=== PATIENT | male | born 1950 | race Caucasian/White ===

== ENCOUNTER 2024-09-15 19:07 | Inpatient (IN) | payer OTHER, MEDICARE ==
[~2024-09-15] VITALS: Ht 172.7 cm; Wt 133.9 kg
[~2024-09-15 19:07] MED LIST: Enoxaparin 40 MG/0.4 ML SYR SC SCH
[2024-09-15] MEDS ORDERED: NS 1,000 ML IV SCH ×2 (20:20→23:20)
[2024-09-15] MEDS ORDERED: DOXA2 PO (20:29)
[2024-09-15] MEDS ORDERED: POTA10T PO (20:29)
[2024-09-15] MEDS ORDERED: CLOP75 PO (20:29)
[2024-09-15] MEDS ORDERED: AMLODIPINE BESY10 MG PO (20:30)
[2024-09-15] MEDS ORDERED: ATOR80 PO (20:30)
[2024-09-15] MEDS ORDERED: FURO20 PO (20:31)
[2024-09-15 20:40] LABS: BASOPHILS ABSOLUTE AUTO 0.02 K/mm3 (0.00-0.23); BASOPHILS PERCENT AUTO 0 % (0-2); EOSINOPHILS ABSOLUTE AUTO 0.01 K/mm3 (0.00-0.68); EOSINOPHILS PERCENT AUTO 0 % (0-6); Hematocrit 38.7 % (37.0-53.0); Hemoglobin 13.2 g/dL (13.5-17.5); IMMATURE GRAN ABSOLUTE AUTO 0.02 K/mm3 (0.00-0.10); IMMATURE GRAN PERCENT AUTO 0 % (0-1); LYMPHOCYTES ABSOLUTE AUTO 1.15 K/mm3 (0.84-5.20); LYMPHOCYTES PERCENT AUTO 18 % (21-46); MONOCYTES ABSOLUTE AUTO 1.01 K/mm3 (0.16-1.47); MONOCYTES PERCENT AUTO 16 % (4-13); Mean Corpuscular HGB 32.1 pg (26.0-34.0); Mean Corpuscular HGB Conc 34.1 g/dL (31.5-36.5); Mean Corpuscular Volume 94 fL (80-100); Mean Platelet Volume 9.3 fL (9.1-12.4); NEUTROPHILS PERCENT AUTO 66 % (41-73); Platelet Count 192 K/mm3 (150-400); RDW Coefficient Variation 12.9 % (11.7-14.2); RDW Standard Deviation 44.9 fL (35.1-46.3); Red Blood Cell Count 4.11 M/mm3 (4.30-5.90); White Blood Cell Count 6.41 K/mm3 (4.00-11.30)
[2024-09-15 21:03] LABS: Bun/Creatinine Ratio 17.3 (12.0-20.0); Calcium, Blood 8.9 mg/dL (8.5-10.1); Creatinine, Blood 1.1 mg/dL (0.60-1.20); Potassium, Blood 4.2 mmol/L (3.5-5.5)
[2024-09-15 21:16] LABS: Influenza B, PCR NEGATIVE (NEGATIVE); Resp Syncytial Virus, PCR NEGATIVE (NEGATIVE); SARS-Cov-2 (COVID-19) PCR, MMC NEGATIVE (NEGATIVE)
[2024-09-15 21:21] LABS: Free Thyroxine 0.96 ng/dL (0.70-1.60); Thyroid Stimulating Hormone 3.85 uIU/mL (0.360-4.800)
[2024-09-15 21:55] LABS: Influenza A, PCR POSITIVE (NEGATIVE)
[2024-09-15] MEDS ORDERED: Ipratropium/Albuterol SulF 2.5-0.5MG/3 ML Amp INH ONE (22:40)
[2024-09-15] MEDS ORDERED: Ondansetron HCl 2 MG / ML 2ML Vial IV PRN (23:25)
[2024-09-15] MEDS ORDERED: Guaifenesin/Dextromethorphan Syrup 5 ML UDC PO PRN (23:25)
[2024-09-15] MEDS ORDERED: Ipratropium/Albuterol SulF 2.5-0.5MG/3 ML Amp INH PRN (23:25)
[2024-09-15] MEDS ORDERED: FLU VACC TS2024-25(6MOS UP)/PF 45 MCG/0.5 ML SYRINGE IM ONE (23:25)
[2024-09-16] MEDS ORDERED: Oseltamivir Phosphate 75 MG Cap PO SCH
[2024-09-16] MEDS ORDERED: MethylPREDNISolone Sod Succ 125 MG Vial IV SCH
[2024-09-16 01:33] VITALS: BP 145/70
--- NOTE | 2024-09-16 04:24 | NUR ---
NEW ADMIT PT ARRIVED TO ROOM AT 0045. PT WAS SATURATED IN URINE/FECES. PT STATES INCONT AT BASELINE. PT A/OX3-4. POOR HISTORIAN. PT IS A AN HAVE MEDS FILLED WITH [facility]. PT STATES HE STOPPED TAKING MEDS BECAUSE HE RAN OUT AND WAITING FOR MEDS TO ARRIVE IN THE MAIL. PT IS UNABLE TO STATE WHICH MEDS HE IS OUT OF/STOPPED TAKING OR WHEN HE TOOK THEM LAST. PT IS ABLE TO ANSWER BASIC ORIENTATION QUESTIONS. PT ADMIT FOR FLU A. PT ON ROOM AIR. FULL CODE. PT IS HOMELESS AND CURRENTLY LIVING IN [place] CAR AT THE [place]. PT HAS CALLED EMS TWICE IN PAST WEEK DUE TO FALLING ON THE GROUND AND NOT BEING ABLE TO GET HIMSELF UP. PT STATES HE IS ALONE. PT DOES NOT WANT FAMILY/CHILDREN CONTACTED. HE STATES HE DOES NOT HAVE HIS CHILDREN'S PHONE NUMBERS AND DOES NOT THINK THEY WOULD "DO ANYTHING" SOILED CLOTHES REMOVED. PT PLACED ON PUREWICK DUE TO INCONT AND PT STATES HE IS UNABLE TO USE URINAL. PT ORIENTED TO ROOM AND CALL LIGHT. PT DENIES IGNITION SOURCES. PT ABLE TO MAKE NEEDS KNOWN AND CALLING APPROPRIATELY.
[2024-09-16 05:20] LABS: BASOPHILS ABSOLUTE AUTO 0.01 K/mm3 (0.00-0.23); BASOPHILS PERCENT AUTO 0 % (0-2); EOSINOPHILS PERCENT AUTO 0 % (0-6); Hematocrit 38.6 % (37.0-53.0); IMMATURE GRAN ABSOLUTE AUTO 0.01 K/mm3 (0.00-0.10); IMMATURE GRAN PERCENT AUTO 0 % (0-1); LYMPHOCYTES ABSOLUTE AUTO 0.84 K/mm3 (0.84-5.20); LYMPHOCYTES PERCENT AUTO 17 % (21-46); MONOCYTES ABSOLUTE AUTO 0.31 K/mm3 (0.16-1.47); MONOCYTES PERCENT AUTO 6 % (4-13); Mean Corpuscular HGB 32.1 pg (26.0-34.0); Mean Corpuscular HGB Conc 33.7 g/dL (31.5-36.5); Mean Corpuscular Volume 95 fL (80-100); Mean Platelet Volume 9.2 fL (9.1-12.4); NEUTROPHILS ABSOLUTE AUTO 3.71 K/mm3 (1.96-9.15); NEUTROPHILS PERCENT AUTO 76 % (41-73); Platelet Count 189 K/mm3 (150-400); RDW Coefficient Variation 12.9 % (11.7-14.2); RDW Standard Deviation 45.6 fL (35.1-46.3); Red Blood Cell Count 4.05 M/mm3 (4.30-5.90); White Blood Cell Count 4.88 K/mm3 (4.00-11.30)
[2024-09-16 06:28] LABS: Albumin, Blood 3.1 g/dL (3.4-5.0); Albumin/Globulin Ratio 0.9 (0.8-1.8); Bilirubin, Total 0.6 mg/dL (0.1-1.0); Bun/Creatinine Ratio 16.8 (12.0-20.0); Calcium, Blood 8.5 mg/dL (8.5-10.1); Creatinine, Blood 1.01 mg/dL (0.60-1.20); Globulin, Blood 3.4 g/dL (2.2-4.0); Total Protein, Blood 6.5 g/dL (6.4-8.2)
[2024-09-16 07:12] VITALS: BP 133/78
--- NOTE | 2024-09-16 09:00 | NUR ---
pt resting in bed, awake, a/ox3, a bit slow to respond, cooperative with care, follows commands well, denies pain, lungs are clear in upper marc dim in bases, resp even and unlabored, on r/a, denies cough, hrr, tele in place running sr in the 70's, no edema noted, ppp+1, cap refill<3 sec, vs stable, afebrile, piv to rfa site is clear and patent, btx4, abd flat soft nontender, voids via purwick at this time, skin has excoriated makenna area, maew, weak, sade, makes needs known, call light in reach.
[2024-09-16 10:56] VITALS: BP 142/69
--- NOTE | 2024-09-16 12:46 | NUR ---
pt resting in bed, no needs at this time, PT worked with him, had him stand and is able to bear weight, call light in reach.
[2024-09-16 15:37] VITALS: BP 142/83
--- NOTE | 2024-09-16 18:37 | NUR ---
PT PLEASANT THIS AFTERNOON, NO C/O PAIN FOR ME. DID GET UP TO BATHROOM TODAY. 1 ASST WITH FWW PER AIDE. NO COUGHING NOTED THIS AFTERNOON. CONTINUES ON R/A. PRESENTLY EATING DINNER. NO NEW CONCERNS NOTED. BED IN LOW POSITION, CALL LITE IN REACH, CALLS APROP
[2024-09-16 20:07] VITALS: BP 132/65
[2024-09-17] VITALS (7 sets, daily range): BP systolic 115–156; BP diastolic 67–90
--- NOTE | 2024-09-17 06:27 | NUR ---
SHIFT SUMMARY PT HAS BEEN RESTING COMFORTABLY IN BED OVERNIGHT. PT HAS BEEN AOX4, CALM AND COOPERATIVE. HE HAD NO COMPLAINTS DURING SHIFT, BUT AT START OF SHIFT, HE EXPRESSED DESIRE TO GO HOME. NO ACUTE EVENTS OVERNIGHT.
[2024-09-17] MEDS ORDERED: GuaiFENesin 600 MG TabCR PO SCH (21:00)
[2024-09-18 04:52] VITALS: BP 122/76
--- NOTE | 2024-09-18 06:34 | NUR ---
SHIFT SUMMARY PT HAS BEEN RESTING IN BED COMFORTABLY OVERNIGHT. PT HAS BEEN AOX4, CALM AND COOPERATIVE. PT HAS HAD NO COMPLAINTS. HE HAS GOTTEN UP ONCE TO GO TO BATHROOM W/ 1PA AND FWW. PT IS ON TELEMETRY. PT HAS BEEN ABLE TO MAKE HIS NEEDS KNOWN. NO ACUTE EVENTS OVERNIGHT.
[2024-09-18 08:48] VITALS: BP 148/79
[2024-09-18 08:48] LABS: MYOGLOBIN SERUM 113 ng/mL (<=72)
[2024-09-18] MEDS ORDERED: PredniSONE 20 MG Tab PO SCH (09:00)
[2024-09-18 15:27] VITALS: BP 150/86
--- NOTE | 2024-09-18 18:13 | NUR ---
PT HAD NO C/O PAIN DURING THE DAY. PT REQUESTED PRN MEDICATION FOR COUGHING. SEE EMAR FOR DETAILS. PT HAS NO OTHER QUESTIONS OR CONCERNS AT THIS TIME.
[2024-09-18 20:31] VITALS: BP 140/79
[2024-09-19 02:47] VITALS: BP 125/85
--- NOTE | 2024-09-19 05:31 | NUR ---
SHIFT SUMMARY PT HAS BEEN RESTING IN BED OVERNIGHT. HE HAS BEEN AOX4, CALM AND COOPERATIVE. PT HAS BEEN ABLE TO AMBULATE W/ 1PA AND FWW TO BATHROOM. PT HAD NO COMPLAINTS OVERNIGHT. NO ACUTE EVENTS OVERNIGHT.
[2024-09-19 07:23] VITALS: BP 134/80
[2024-09-19 15:54] VITALS: BP 125/81
--- NOTE | 2024-09-19 17:48 | NUR ---
NO CHANGES FOR THE PT TODAY, NO C/O PAIN SOB OR CHEST PAIN
[2024-09-19 20:17] VITALS: BP 143/71
--- NOTE | 2024-09-20 04:28 | NUR ---
SHIFT SUMMARY PT ALERT ORIENTED ABLE TO VERBALIZE NEEDS REQUIRES SBA TO GET UP. HE USES THE URINAL AT BEDSIDE BUT IS INCONTINENT AT TIMES. VSS ON RA SATTING AT 96%. REMAINS WITH A NONPRODUCTIVE COUGH MEDICATED WITH ROBITUSSIN WITH GOOD RELIEF. REMAINS IN DROPLET ISOLATION R/T INFLUENZA A. REMAINS ON TAMIFLU BID. HES DUE TO BE DISCHARGED TO A SNF. HE CURRENTLY LIVES IN HIS TRUCK HES RESTING IN BED AT THIS TIME WITH CALL LIGHT IN REACH
[2024-09-20 08:59] VITALS: BP 130/78
--- NOTE | 2024-09-20 16:44 | NUR ---
SUMMARY NO ACUTE EVENTS. PATIENT WAITING ON SNF PLACEMENT.
[2024-09-20 17:40] VITALS: BP 158/83
[2024-09-20 21:21] VITALS: BP 149/73
[2024-09-21 00:09] VITALS: BP 134/68
[2024-09-21 04:19] VITALS: BP 128/58
--- NOTE | 2024-09-21 05:05 | NUR ---
SHIFT SUMMARY NOC PT A/O X 4. PLEASANT AND COOPERATIVE WITH CARE. VSS. NO ACUTE EVENTS TO REPORT. PT ON DROPLET ISOLATION FOR INFLUENZA A. PT SLEPT FOR ENTIRETY OF SHIFT AFTER SHIFT ASSESSMENT COMPLETED. PT ON RA SPO2 >92%. PT ANTICIPATED TO DISCHARGE TO [facility] TODAY IF THERE IS A PRIVATE ROOM AVAILABLE DUE TO FLU POSITIVE. PT CURRENTLY RESTING WITH BED IN LOWEST POSITION, AND CALL LIGHT WITHIN REACH.
[2024-09-21 07:32] VITALS: BP 150/86
--- NOTE | 2024-09-21 09:00 | NUR ---
pt sitting up in a chair for breakfast, a/ox4, cooperative with care, follows commands well, denies pain at this time, lungs are clear in upper marc, course with exp wheezing in bases, resp even and unlabored, no cough noted, hrr, 2+ edema noted to b/l le, cap refill<3 sec, vs stable, afebrile, piv to rfa site is clear and patent, s.l., btx4, abd flat soft nontender, voids without diff, skin c/w/d, maew, sade, call light in reach.
[2024-09-21 15:51] VITALS: BP 145/83
--- NOTE | 2024-09-21 19:19 | NUR ---
pt resting in bed, voids in urinal, no acute changes this shift, only asked for an extra blanket once, no further changes this shift. call light in reach.
[2024-09-21 19:40] VITALS: BP 151/88
[2024-09-22 04:22] VITALS: BP 153/71
--- NOTE | 2024-09-22 04:56 | NUR ---
SHIFT SUMMARY PT INDEPENDENT IN ROOM. PT WITH COUGH, USUALLY NONPRODUCTIVE. MEDICATED PER EMAR. PT ON RA WITH O2 SATS >92%. DROPLET ISOLATION CONTINUES. PT STATES SOME SOB WITH EXERTION. SLEPT LONG INTERVALS THROUGH THE NIGHT. BED IN LOWEST POSITION, CALL LIGHT WITHIN REACH, SIDERAILS UP X2.
[2024-09-22 08:26] VITALS: BP 133/80
--- NOTE | 2024-09-22 14:42 | NUR ---
PATIENT TRANSPORTED TO [facility], REPORT GIVEN TO JORDIN RN, PATIENT PLEASANT TO CARE
== END 2024-09-22 14:00 | DRG 866 ==
LOC: ER 19:07 → MEDS 19:08 → ERHOLD 19:08 → MEDS 09-16 00:45
PROVIDERS: Emergency Medicine; ADMIT Internal Medicine
DX: J10.89 Influenza due to other identified influenza virus with other manifestations (principal); Z68.44 Body mass index [BMI] 60.0-69.9, adult; I10 Essential (primary) hypertension; E66.01 Morbid (severe) obesity due to excess calories; H40.9 Unspecified glaucoma; E78.5 Hyperlipidemia, unspecified; M19.90 Unspecified osteoarthritis, unspecified site; E86.0 Dehydration; G47.33 Obstructive sleep apnea (adult) (pediatric); Z28.21 Immunization not carried out because of patient refusal; R29.6 Repeated falls; Z88.8 Allergy status to other drugs, medicaments and biological substances; Z86.73 Personal history of transient ischemic attack (TIA), and cerebral infarction without residual deficits; Z79.899 Other long term (current) drug therapy; Z79.02 Long term (current) use of antithrombotics/antiplatelets
CPT/HCPCS: 0241U; 36415; 70450; 80048; 80053; 82550; 83874; 83880; 84439; 84443; 84484; 85025; 87070; 87205; 93005; 93010; 94640; 94664; 94760; 96372; 96374; 96376; 97110; 97162; 97530; 99285-25; A9270; G0378; J1650; J2919; J7030; J7512